=== PATIENT | female | born 1985 | race American Indian/Alaskan Native ===

== ENCOUNTER 2016-04-19 00:17 | Emergency (ER) | payer MEDICAID ==
[2016-04-19 01:38] LABS: Basophils % (Auto) 0.5 % (0.0-1.8); Eosinophils % (Auto) 4.1 % (0.0-4.3); Hematocrit 38.6 % (30.3-42.9); Hemoglobin 12.6 gm/dl (10.1-14.3); Mean Corpuscular HGB Conc 33 % (30-34); Mean Corpuscular Hemoglobin 27 pg (28-32); Mean Corpuscular Volume 81 fl (79-97); Platelet Count 284 K/mm3 (140-440); Red Blood Count 4.77 M/mm3 (3.65-5.03); White Blood Count 7.9 K/mm3 (4.5-11.0)
[2016-04-19 02:15] LABS: Anion Gap 17 mmol/L; Blood Urea Nitrogen 12 mg/dL (7-17); Calcium 9.5 mg/dL (8.4-10.2); Carbon Dioxide 26 mmol/L (22-30); Chloride 93.9 mmol/L (98-107); Glucose 391 mg/dL (65-100); Potassium 3.9 mmol/L (3.6-5.0); Sodium 133 mmol/L (137-145)
[2016-04-19 03:04] LABS: Bilirubin,Urine NEG (Negative); Blood,Urine LG (Negative); Ketones,Urine NEG (Negative); Leukocyte Esterase,Urine NEG (Negative); Nitrite,Urine NEG (Negative); Protein,Urine <15 mg/dL mg/dL (Negative); Urobilinogen,Urine < 2.0 mg/dL (<2.0)
[2016-04-19] MEDS: NACL 0.9% 1000 ML 1,000 ML IV ONE (03:45)
[2016-04-19 04:08] VITALS: BP 111/67
--- NOTE | 2016-04-19 05:36 | Emergency Department Report ---
HPI - General Chief Complaint: Hyperglycemia Time Seen by Provider: 04/19/16 04:33 - HPI HPI: The patient is a 30-year-old female with a history of diabetes, presents for evaluation of elevated blood sugar and bilateral lower leg pain. The patient reports 1 day of bilateral lower leg pain, tingling and sharp in quality, mild to moderate in severity, exacerbated with movement of the leg, radiating proximally. She shares that she found her blood sugar to be elevated as high as 600 earlier this evening at 9 PM. The patient denies fever, cough, dyspnea, chest pain, vomiting, diarrhea, blood in the stool, dark tarry stool, dysuria, hematuria, flank pain, genital discharge, inability to pass flatus. ED Past Medical Hx - Past Medical History Previous Medical History?: Yes Hx Hypertension: No Hx Congestive Heart Failure: No Hx Diabetes: Yes Hx Deep Vein Thrombosis: No Hx Renal Disease: No Hx Sickle Cell Disease: No Hx Seizures: No Hx Psychiatric Treatment: Yes (four times in [place], [place].) Hx Asthma: No Hx COPD: No Hx HIV: No Additional medical history: bipolar - Surgical History Past Surgical History?: Yes Additional Surgical History: tubal ligation - Social History Smoking Status: Never Smoker Substance Use Type: None - Medications Home Medications: Home Medications Medication Instructions Recorded Confirmed Last Taken Type Insulin Glargine [Lantus VIAL] 30 units SUB-Q QHS 11/26/14 11/26/14 11/26/14 History Insulin Lispro [HumaLOG VIAL] 0 units SQ AC 11/26/14 11/26/14 11/26/14 History metFORMIN [Glucophage] 500 mg PO BID 11/26/14 11/26/14 11/26/14 History Sulfamethoxazole/Trimethoprim 1 each PO BID #20 tablet 06/24/15 Unknown Rx [Bactrim DS TAB] Gabapentin [Neurontin] 300 mg PO BID #20 cap 04/19/16 Unknown Rx ED Review of Systems ROS: Stated complaint: HIGH BLOOD SUGAR Other details as noted in HPI Constitutional: denies: fever ENT: denies: throat or neck pain Respiratory: denies: cough, shortness of breath Cardiovascular: denies: chest pain Endocrine: denies unexplained weight loss or gain Gastrointestinal: denies: abdominal pain, nausea Genitourinary: denies: dysuria Musculoskeletal: reports leg pain denies: leg swelling Skin: denies: rash Neurological: denies: headache Hematological/Lymphatic: denies: easy bleeding or easy bruising Psych: denies sadness or hopelessness Physical Exam - Physical Exam Vital Signs: Vital Signs 04/19/16 04/19/16 04/19/16 00:20 02:07 03:45 Temperature 98.3 F 98.2 F Pulse Rate 84 77 78 Respiratory 20 18 18 Rate Blood Pressure 111/67 [Left] Blood Pressure 133/94 119/68 [Right] O2 Sat by Pulse 100 99 Oximetry Physical Exam: General: well-nourished, well-developed, no acute distress Head: Normocephalic, atraumatic Eyes: normal sclera ENT: Mucous membranes are pale and dry Neck: No neck stiffness, no cervical adenopathy Respiratory: Breath sounds equal bilaterally, no wheezing, rales, or rhonchi Cardio: S1 and S2 present, no murmurs, rubs, gallops, capillary refill is delayed Abdomen: Normoactive bowel sounds, soft abdomen, no rigidity, no guarding or rebound tenderness Musc: No tenderness to the lower legs bilaterally, no redness, warmth, ecchymosis or swelling, no signs of DVT or compartment syndrome, No pitting edema Skin: No rash Neuro: no facial drooping, normal speech Psych: Normal affect ED Course Vital Signs 04/19/16 04/19/16 04/19/16 00:20 02:07 03:45 Temperature 98.3 F 98.2 F Pulse Rate 84 77 78 Respiratory 20 18 18 Rate Blood Pressure 111/67 [Left] Blood Pressure 133/94 119/68 [Right] O2 Sat by Pulse 100 99 Oximetry ED Medical Decision Making - Lab Data Result diagrams: 04/19/16 00:51 04/19/16 00:51 - Medical Decision Making The patient was seen and examined by myself. The patient is placed on a hospital monitor and continuous pulse ox. On initial evaluation, the patient was found to be in no distress. Evaluation orders were placed. The patient given a tablet of Neurontin for her pain. Lab results revealed elevated glucose of 390 , and otherwise labs are unrevealing. The patient is given 1 L normal saline fluid bolus for treatment of dehydration and hyperglycemia.The patient was reevaluated and reported that their symptoms were markedly improved. The patient's glucose is now in the 220. The patient is stable for discharge with outpatient follow-up. The patient is given follow-up and return instructions. The patient expressed understanding and agreed with the plan. The patient is discharged in stable condition. Critical care attestation.: If time is entered above; I have spent that time in minutes in the direct care of this critically ill patient, excluding procedure time. ED Disposition Clinical Impression: Acute hyperglycemia, Dehydration, Bilateral leg pain Disposition: DISCHARGED TO HOME OR SELFCARE Is pt being admited?: No Does the pt Need Aspirin: No Condition: Stable Instructions: Diabetic Hyperglycemia (ED), Diabetic Neuropathy (ED) Prescriptions: Gabapentin [Neurontin] 300 mg PO BID #20 cap Referrals: PRIMARY CARE, [Primary Care Provider] - 3-5 Days Time of Disposition: 05:02
[2016-04-19] MEDS: NEURONTIN PO ONE (05:43)
[2016-04-19] MEDS: TYLENOL PO ONE (05:43)
[2016-04-22 03:02] LABS: B-Hydroxybutyrate 0.1 mmol/L (-0.28)
== END 2016-04-19 06:04 | disposition home or self-care (01) ==
LOC: ED 00:17
DX: E11.65 Type 2 diabetes mellitus with hyperglycemia (principal); E86.0 Dehydration; M79.605 Pain in left leg; M79.604 Pain in right leg; F31.9 Bipolar disorder, unspecified
CPT/HCPCS: 36415; 80048; 81001; 82010; 82805; 82962; 84703; 85025; 96361; 96374; 99284; J7030; J1815

== ENCOUNTER 2016-05-30 08:49 | Emergency (ER) | payer MEDICAID ==
[2016-05-30 09:08] VITALS: BP 119/82
[2016-05-30 09:22] LABS: Basophils % (Auto) 0.6 % (0.0-1.8); Eosinophils % (Auto) 4.2 % (0.0-4.3); Hematocrit 38.4 % (30.3-42.9); Hemoglobin 12.7 gm/dl (10.1-14.3); Mean Corpuscular HGB Conc 33 % (30-34); Mean Corpuscular Hemoglobin 27 pg (28-32); Mean Corpuscular Volume 81 fl (79-97); Platelet Count 329 K/mm3 (140-440); Red Blood Count 4.75 M/mm3 (3.65-5.03); Red Cell Distribution Width 15.6 % (13.2-15.2); White Blood Count 6.5 K/mm3 (4.5-11.0)
[2016-05-30 09:36] LABS: Anion Gap 26 mmol/L; BUN/Creatinine Ratio 23.33; Blood Urea Nitrogen 14 mg/dL (7-17); Calcium 9.2 mg/dL (8.4-10.2); Carbon Dioxide 18 mmol/L (22-30); Chloride 88.9 mmol/L (98-107); Potassium 4.2 mmol/L (3.6-5.0); Sodium 129 mmol/L (137-145)
[2016-05-30 09:38] LABS: Glucose 515 mg/dL (65-100)
--- NOTE | 2016-05-30 10:26 | Emergency Department Report ---
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 - ROS Review of Systems: see above - Exam Vital Signs: Vital Signs 05/30/16 09:04 Temperature 98.2 F Pulse Rate 83 Respiratory 16 Rate Blood Pressure 119/82 O2 Sat by Pulse 98 Oximetry MSE screening note: Focused history and physical exam performed. Due to findings the following was ordered: ED Medical Decision Making - Lab Data Result diagrams: 05/30/16 09:11 05/30/16 09:15 ED Disposition for MSE Condition: Stable Referrals: PRIMARY CARE, [Primary Care Provider] - 3-5 Days
[2016-06-03 12:40] LABS: B-Hydroxybutyrate 3.7 mmol/L (0.2 - 0.28)
== END 2016-05-30 10:18 | disposition left against medical advice (07) ==
LOC: ED 08:49
DX: E11.65 Type 2 diabetes mellitus with hyperglycemia (principal); Z53.21 Procedure and treatment not carried out due to patient leaving prior to being seen by health care provider
CPT/HCPCS: 36415; 80048; 82010; 82805; 82962; 85025

== ENCOUNTER 2016-08-10 22:26 | Emergency (ER) | payer MEDICAID ==
[2016-08-10 22:49] VITALS: BP 135/84
[2016-08-10 23:16] LABS: Basophils % (Auto) 0.4 % (0.0-1.8); Eosinophils % (Auto) 2.9 % (0.0-4.3); Hemoglobin 12.8 gm/dl (10.1-14.3); Mean Corpuscular HGB Conc 33 % (30-34); Mean Corpuscular Hemoglobin 27 pg (28-32); Mean Corpuscular Volume 81 fl (79-97); Platelet Count 326 K/mm3 (140-440); Red Blood Count 4.82 M/mm3 (3.65-5.03); Red Cell Distribution Width 15.4 % (13.2-15.2); White Blood Count 8.9 K/mm3 (4.5-11.0)
[2016-08-10 23:29] LABS: Anion Gap 22 mmol/L; BUN/Creatinine Ratio 18.33; Blood Urea Nitrogen 11 mg/dL (7-17); Calcium 9.2 mg/dL (8.4-10.2); Carbon Dioxide 23 mmol/L (22-30); Chloride 89.6 mmol/L (98-107); Glucose 420 mg/dL (65-100); Potassium 3.6 mmol/L (3.6-5.0); Sodium 131 mmol/L (137-145)
[2016-08-10 23:49] LABS: Bilirubin,Urine NEG (Negative); Blood,Urine LG (Negative); Ketones,Urine 20 mg/dL (Negative); Leukocyte Esterase,Urine NEG (Negative); Mucus,Urine FEW /HPF; Nitrite,Urine NEG (Negative); Protein,Urine <15 mg/dL mg/dL (Negative); Urobilinogen,Urine < 2.0 mg/dL (<2.0)
[2016-08-11] MEDS ORDERED: NACL 0.9% 1000 ML 1,000 ML IV ONE (00:23)
--- NOTE | 2016-08-11 01:01 | ED Elopement Review ---
ED Pt Elopement review - Results review Lab results: Laboratory Tests 08/10/16 08/10/16 08/10/16 22:52 22:52 22:52 WBC 8.9 RBC 4.82 Hgb 12.8 Hct 39.0 MCV 81 MCH 27 L MCHC 33 RDW 15.4 H Plt Count 326 Lymph % (Auto) 42.3 H [place] % (Auto) 8.2 H Eos % (Auto) 2.9 Baso % (Auto) 0.4 Lymph # 3.8 [place] # 0.7 Eos # 0.3 Baso # 0.0 Seg Neutrophils % 46.2 Seg Neutrophils # 4.1 VBG pH Sodium 131 L Potassium 3.6 Chloride 89.6 L Carbon Dioxide 23 Anion Gap 22 BUN 11 Creatinine 0.6 L Estimated GFR > 60 BUN/Creatinine Ratio 18.33 Glucose 420 H Calcium 9.2 HCG, Qual Negative Urine Color Urine Turbidity Urine pH Ur Specific [place] Urine Protein Urine Glucose (UA) Urine Ketones Urine Blood Urine Nitrite Urine Bilirubin Urine Urobilinogen Ur Leukocyte Esterase Urine WBC (Auto) Urine RBC (Auto) U Epithel Cells (Auto) Urine Mucus 08/10/16 08/10/16 22:54 23:21 WBC RBC Hgb Hct MCV MCH MCHC RDW Plt Count Lymph % (Auto) [place] % (Auto) Eos % (Auto) Baso % (Auto) Lymph # [place] # Eos # Baso # Seg Neutrophils % Seg Neutrophils # VBG pH 7.398 Sodium Potassium Chloride Carbon Dioxide Anion Gap BUN Creatinine Estimated GFR BUN/Creatinine Ratio Glucose Calcium HCG, Qual Urine Color Straw Urine Turbidity Clear Urine pH 6.0 Ur Specific [place] 1.027 Urine Protein <15 mg/dl Urine Glucose (UA) >=500 Urine Ketones 20 Urine Blood Lg Urine Nitrite Neg Urine Bilirubin Neg Urine Urobilinogen < 2.0 Ur Leukocyte Esterase Neg Urine WBC (Auto) 39.0 H Urine RBC (Auto) 19.0 U Epithel Cells (Auto) < 1.0 Urine Mucus Few - Call Back decision Pt Call Back Decision: Call pt to return to ED BERNARDA (when I went to examine the patient in the examination room the patient had left. This was confirmed by the other patient in exam room #[id number] as well as issuer Robert. I called the patient back at the number listed on demographics and spoke to her on the phone. I advised the patient to return to the emergency room immediately because her sugar level is very high and her diabetes is not well-controlled. Patient stated that she left because she could not find anyone to take care of her children. Patient stated that she would seek medical attention as soon as possible. I advised the patient to return to the emergency room immediately patient stated that she would do so at her earliest convenience.)
== END 2016-08-11 01:47 | disposition left against medical advice (07) ==
LOC: ED 22:26
DX: E11.65 Type 2 diabetes mellitus with hyperglycemia (principal); Z76.0 Encounter for issue of repeat prescription; F31.9 Bipolar disorder, unspecified; F17.200 Nicotine dependence, unspecified, uncomplicated; Z53.21 Procedure and treatment not carried out due to patient leaving prior to being seen by health care provider
CPT/HCPCS: 36415; 80048; 81001; 82805; 84703; 85025

== ENCOUNTER 2016-11-02 07:26 | Emergency (ER) | payer SELFPAY ==
[2016-11-02 07:49] VITALS: BP 121/69
== END 2016-11-02 08:23 ==
LOC: ED 07:26
DX: R73.9 Hyperglycemia, unspecified (principal); Z53.21 Procedure and treatment not carried out due to patient leaving prior to being seen by health care provider

== ENCOUNTER 2017-04-12 19:29 | Emergency (ER) | payer MEDICAID ==
[2017-04-12 20:38] LABS: Basophils # (Auto) 0.1 K/mm3 (0.0-0.1); Basophils % (Auto) 0.8 % (0.0-1.8); Eosinophils # (Auto) 0.2 K/mm3 (0.0-0.4); Eosinophils % (Auto) 3.3 % (0.0-4.3); Hematocrit 35.2 % (30.3-42.9); Hemoglobin 11.5 gm/dl (10.1-14.3); Lymphocytes # (Auto) 3.4 K/mm3 (1.2-5.4); Lymphocytes % (Auto) 50.6 % (13.4-35.0); Mean Corpuscular HGB Conc 33 % (30-34); Mean Corpuscular Volume 78 fl (79-97); Monocytes # (Auto) 0.5 K/mm3 (0.0-0.8); Monocytes % (Auto) 7.6 % (0.0-7.3); Platelet Count 323 K/mm3 (140-440); Red Blood Count 4.49 M/mm3 (3.65-5.03); Red Cell Distribution Width 15.4 % (13.2-15.2)
[2017-04-12 20:42] LABS: Mean Corpuscular Hemoglobin 26 pg (28-32)
[2017-04-12 20:54] LABS: BUN/Creatinine Ratio 22; Blood Urea Nitrogen 13 mg/dL (7-17); Calcium 9.1 mg/dL (8.4-10.2); Hemolysis Index 14
[2017-04-12] MEDS ORDERED: NACL 0.9% 1000 ML 1,000 ML IV ONE (22:07)
[2017-04-12] MEDS ORDERED: HumuLIN R IV ONE (22:07)
--- NOTE | 2017-04-12 22:11 | Emergency Department Report ---
HPI - General Chief Complaint: Hyperglycemia Time Seen by Provider: 04/12/17 22:01 - HPI HPI: 31-year-old female presents to the emergency department, dropped off by her mother to be seen, with complaint of low back pain when urinating. She denies any actual dysuria and she does not have any back pain when she is not urinating, is resting, or with any other type of movement. She denies any numbness or paresthesias or any neurological deficits. The patient presents with elevated blood sugar. She has a insulin-dependent diabetic and says she is compliant with her medications. She admits to some increased urination, increased thirst, but denies any fever, shortness of breath, abdominal pain, vaginal discharge or bleeding. She has not taken anything for her symptoms prior to Presentation. No recent travel or sick contacts at home. She goes to [facility] for her primary care needs. ED Past Medical Hx - Past Medical History Previous Medical History?: Yes Hx Hypertension: No Hx Congestive Heart Failure: No Hx Diabetes: Yes (Type 1) Hx Deep Vein Thrombosis: No Hx Renal Disease: No Hx Sickle Cell Disease: No Hx Seizures: No Hx Psychiatric Treatment: Yes (four times in [place], [place].BI Polar disorder) Hx Asthma: No Hx COPD: No Hx HIV: No Additional medical history: bipolar Disorder - Surgical History Past Surgical History?: Yes Additional Surgical History: tubal ligation - Social History Smoking Status: Former Smoker Substance Use Type: None - Medications Home Medications: Home Medications Medication Instructions Recorded Confirmed Last Taken Type Insulin Glargine [Lantus VIAL] 30 units SUB-Q QHS 11/26/14 11/26/14 11/26/14 History Insulin Lispro [HumaLOG VIAL] 0 units SQ AC 11/26/14 11/26/14 11/26/14 History metFORMIN [Glucophage] 500 mg PO BID 11/26/14 11/26/14 11/26/14 History Sulfamethoxazole/Trimethoprim 1 each PO BID #20 tablet 06/24/15 Unknown Rx [Bactrim DS TAB] Gabapentin [Neurontin] 300 mg PO BID #20 cap 04/19/16 Unknown Rx Nitrofurantoin [place]/M-Cryst 100 mg PO BID #14 capsule 04/12/17 Unknown Rx [Macrobid CAP] ED Review of Systems ROS: Stated complaint: PAINFUL URINATION; BACK PAIN Other details as noted in HPI Comment: All other systems reviewed and negative Constitutional: denies: chills, fever Eyes: denies: eye pain, eye discharge, vision change ENT: denies: ear pain, throat pain Respiratory: denies: cough, shortness of breath, wheezing Cardiovascular: denies: chest pain, palpitations Endocrine: increased thirst, increased urine Gastrointestinal: denies: vomiting, diarrhea Genitourinary: frequency. denies: discharge Musculoskeletal: back pain (when urinating). denies: arthralgia Skin: denies: rash, lesions Neurological: denies: headache, weakness, paresthesias Physical Exam - Physical Exam Vital Signs: Vital Signs 04/12/17 20:07 Temperature 99.2 F Pulse Rate 87 Respiratory 18 Rate Blood Pressure 124/84 O2 Sat by Pulse 99 Oximetry Physical Exam: GENERAL: The patient is well-developed well-nourished. HENT: Normocephalic. Atraumatic. Patient has moist mucous membranes. EYES: Extraocular motions are intact. Pupils equal reactive to light bilaterally. NECK: Supple. Trachea is midline. CHEST/LUNGS: Clear to auscultation. There is no respiratory distress noted. HEART/CARDIOVASCULAR: Regular. There is no tachycardia. There is no murmur. ABDOMEN: Abdomen is soft, nontender. Patient has normal bowel sounds. There is no abdominal distention. SKIN: Skin is warm and dry. NEURO: The patient is awake, alert, and oriented. The patient is cooperative. The patient has no focal neurologic deficits. The patient has normal speech. MUSCULOSKELETAL: There is no tenderness or deformity. There is no limitation range of motion. There is no evidence of acute injury. Muscle strength 5 out of 5 upper and lower extremities bilaterally including EHL. BACK: No midline thoracic or lumbar tenderness to palpation, step-off or deformity. ED Course Vital Signs 04/12/17 20:07 Temperature 99.2 F Pulse Rate 87 Respiratory 18 Rate Blood Pressure 124/84 O2 Sat by Pulse 99 Oximetry ED Medical Decision Making - Lab Data Result diagrams: 04/12/17 20:26 04/12/17 20:26 - Medical Decision Making Patient presents with complaint of some back pain with urination. Urinalysis does show a urinary tract infection that may be the etiology of the symptoms. She has no back pain otherwise and therefore is low suspicion for any emergent back condition such as cauda equina, epidural abscess or cord compression syndrome. She is moving all extremities, no numbness or paresthesias and no back pain to palpation. The patient does have some signs/symptoms of hyperglycemia including increased thirst and increased urination and was found to have elevated blood sugar of about 420. She does not have a significantly elevated anion gap and there is no venous acidosis and therefore the patient is lower suspicion for diabetic ketoacidosis. She was given a dose of IV insulin and a liter of IV fluid and her blood sugar came down from 420 - 280. She was given a dose of her Macrobid here prior to discharge and will go home with a prescription for. She already has an appointment with her PCP at [facility] this coming Sunday and will keep that appointment. She will try stay with foods that are high in sugar, carbohydrates and starches, continue with her insulin regimen, and will return to the ER with any worsening of her symptoms or any acute distress. - Differential Diagnosis DKA, HHNK, UTI, Critical Care Time: No Critical care attestation.: If time is entered above; I have spent that time in minutes in the direct care of this critically ill patient, excluding procedure time. ED Disposition Clinical Impression: Hyperglycemia UTI (urinary tract infection) Qualifiers: Urinary tract infection type: acute cystitis Hematuria presence: without hematuria Qualified Code(s): N30.00 - Acute cystitis without hematuria Disposition: TO HOME OR SELFCARE Is pt being admited?: No Condition: Stable Instructions: Urinary Tract Infection in Women (ED), Diabetic Hyperglycemia (ED ) Additional Instructions: Please follow-up with your primary care physician at [facility] on Sunday as previously scheduled. Return to the emergency Department with any worsening of your symptoms or any acute distress. Take the antibiotics as prescribed. Try and stay away from foods that are high in sugar, carbohydrates and starches to help with your blood sugar. Take your insulin as previously prescribed. Keep a blood sugar log. Prescriptions: Nitrofurantoin [place]/M-Cryst [Macrobid CAP] 100 mg PO BID #14 capsule Referrals: [facility] [Outside] - 3-5 Days Time of Disposition: 23:46
[2017-04-12 23:29] VITALS: BP 107/66
[2017-04-12 23:30] LABS: Bacteria,Urine 1+ /HPF (Negative); Bilirubin,Urine NEG (Negative); Blood,Urine NEG (Negative); Color,Urine Yellow (Yellow); Mucus,Urine FEW /HPF; Protein,Urine <15 mg/dL mg/dL (Negative); Urobilinogen,Urine < 2.0 mg/dL (<2.0)
[2017-04-12] MEDS ORDERED: ROCEPHIN/NS 1 GM/50 ML 1 GM/50 ML BAG IV ONE (23:41)
[2017-04-12] MEDS ORDERED: MACROBID PO ONE (23:44)
== END 2017-04-13 00:11 | disposition home or self-care (01) ==
LOC: ED 19:29
DX: N39.0 Urinary tract infection, site not specified (principal); E10.65 Type 1 diabetes mellitus with hyperglycemia; Z79.4 Long term (current) use of insulin; Z87.891 Personal history of nicotine dependence
CPT/HCPCS: 36415; 80048; 81001; 82805; 82962; 84703; 85025; 93005; 93010; 96361; 96374; 99284; J7030; J1815

== ENCOUNTER 2017-08-14 12:02 | Emergency (ER) | payer MEDICAID ==
[2017-08-14 13:07] LABS: Basophils % (Auto) 0.6 % (0.0-1.8); Eosinophils # (Auto) 0.3 K/mm3 (0.0-0.4); Eosinophils % (Auto) 6.2 % (0.0-4.3); Hematocrit 35.8 % (30.3-42.9); Hemoglobin 11.9 gm/dl (10.1-14.3); Lymphocytes # (Auto) 2.2 K/mm3 (1.2-5.4); Lymphocytes % (Auto) 46.2 % (13.4-35.0); Mean Corpuscular HGB Conc 33 % (30-34); Mean Corpuscular Hemoglobin 28 pg (28-32); Mean Corpuscular Volume 83 fl (79-97); Monocytes # (Auto) 0.4 K/mm3 (0.0-0.8); Monocytes % (Auto) 9.4 % (0.0-7.3); Platelet Count 282 K/mm3 (140-440); Red Cell Distribution Width 16.4 % (13.2-15.2)
[2017-08-14 13:18] LABS: BUN/Creatinine Ratio 14; Blood Urea Nitrogen 7 mg/dL (7-17); Calcium 9.2 mg/dL (8.4-10.2); Hemolysis Index 10
[2017-08-14] MEDS ORDERED: HumuLIN R IV ONE (14:09)
[2017-08-14] MEDS ORDERED: NACL 0.9% 1000 ML 1,000 ML IV ONE (14:17)
[2017-08-14 14:28] LABS: Bacteria,Urine 1+ /HPF (Negative); Bilirubin,Urine NEG (Negative); Blood,Urine MOD (Negative); Color,Urine Yellow (Yellow); Mucus,Urine FEW /HPF; Protein,Urine <15 mg/dL mg/dL (Negative); Urobilinogen,Urine < 2.0 mg/dL (<2.0)
--- NOTE | 2017-08-14 17:43 | Emergency Department Report ---
ED General Adult HPI - General Chief complaint: Hyperglycemia Stated complaint: HIGH BLOOD SUGAR Time Seen by Provider: 08/14/17 13:52 Source: EMS Mode of arrival: Ambulatory Limitations: No Limitations - History of Present Illness Initial comments: Patient reports non-compliant with insulin use. Reports that approximately 2 months ago she stopped taking her meds and sought counseling for depression after her young son of cancer. Denies symptoms. Reports that she took 30 units of lantus prior to going to the clinic for her scheduled appointment. Was told at the clinic that her accucheck was high and to go to the ER. -: hour(s) Severity scale (0 -10): 0 Consistency: constant Improves with: medication Worsens with: other (medication non-compliance) Associated Symptoms: denies other symptoms. denies: confusion, chest pain, cough, diaphoresis, headaches, loss of appetite, malaise, nausea/vomiting, rash , shortness of breath, syncope, weakness - Related Data Home Medications Medication Instructions Recorded Confirmed Last Taken Insulin Glargine [Lantus VIAL] 30 units SUB-Q QHS 11/26/14 08/14/17 11/26/14 Insulin Lispro [HumaLOG VIAL] 0 units SQ AC 11/26/14 08/14/17 08/14/17 buPROPion XL [Wellbutrin Xl] 150 mg PO QAM 08/14/17 08/14/17 08/14/17 Allergies Allergy/AdvReac Type Severity Reaction Status Date / Time No Known Allergies Allergy Verified 02/17/13 23:39 ED Review of Systems ROS: Stated complaint: HIGH BLOOD SUGAR Other details as noted in HPI Hematological/Lymphatic: swollen glands Other: GENERAL: No weight change, fatigue, weakness, fever, chills, or night sweats SKIN: No changes in skin or hair, no itching, no rashes, no jaundice HEAD: No trauma, headache, or visual changes EYES: No blurriness, tearing, itching, acute visual loss, conjunctival discoloration, or scleral icterus EARS: No hearing loss, tinnitus, vertigo, or earache NOSE: No rhinorrhea, stuffiness, sneezing, itching, or epistaxis MOUTH: No bleeding gums, hoarseness, sore throat, or swelling CARDIAC: No new murmur, chest pain, palpitations, dyspnea on exertion, orthopnea , PND, or edema RESPIRATORY: No shortness of breath, wheeze, cough, sputum production, hemoptysis, pneumonia, asthma, bronchitis, or emphysema GI: No change in appetite, nausea, vomiting, dysphagia, change in bowel frequency, diarrhea, constipation, bleeding, hematemesis, melena, hematochezia, or abdominal pain URINARY: No frequency, urgency, polyuria, dysuria, hematuria, or incontinence MUSCULOSKELETAL: No muscle weakness, joint stiffness, decrease in range of motion, redness, swelling NEUROLOGIC: No loss of sensation, numbness, tingling, tremors, weakness, paralysis, seizures HEMATOLOGIC: No anemia, easy bruising, bleeding, petechiae, or purpura ENDOCRINE: No hot or cold intolerance, sweating, polyuria, polydipsia or, polyphagia no thyroid problems PSYCHIATRIC: Depression. Denies SI/HI. Reports that she is followed by a therapist and refuses evaluation by the counselor in the ER. ED Past Medical Hx - Past Medical History Previous Medical History?: Yes Hx Hypertension: No Hx CVA: No Hx Heart Attack/AMI: No Hx Congestive Heart Failure: No Hx Diabetes: Yes (Type 1) Hx Deep Vein Thrombosis: No Hx Pulmonary Embolism: No Hx GERD: No Hx Liver Disease: No Hx Renal Disease: No Hx of Cancer: No Hx Sickle Cell Disease: No Hx Arthritis: No Hx Headaches / Migraines: No Hx Seizures: No Hx Kidney Stones: No Hx Psychiatric Treatment: Yes (four times in [place], [place].BI Polar disorder) Hx Asthma: No Hx COPD: No Hx Dementia: No Hx HIV: No Additional medical history: bipolar Disorder - Surgical History Past Surgical History?: Yes Hx Coronary Stent: No Hx Open Heart Surgery: No Hx Pacemaker: No Hx Internal Defibrillator: No Hx Cholecystectomy: No Hx Appendectomy: No Hx Breast Surgery: No Additional Surgical History: tubal ligation - Social History Smoking Status: Former Smoker Substance Use Type: None - Medications Home Medications: Home Medications Medication Instructions Recorded Confirmed Last Taken Type Insulin Glargine [Lantus VIAL] 30 units SUB-Q QHS 11/26/14 08/14/17 11/26/14 History Insulin Lispro [HumaLOG VIAL] 0 units SQ AC 11/26/14 08/14/17 08/14/17 History buPROPion XL [Wellbutrin Xl] 150 mg PO QAM 08/14/17 08/14/17 08/14/17 History ED Physical Exam - General Limitations: No Limitations - Other Other exam information: GENERAL: Patient in no acute distress HEAD: Normocephalic, atraumatic EYES: PERRLA, EOM intact, no scleral icterus, visual bonds and acuity wnl NOSE: No tenderness, discharge, sinus tenderness MOUTH: No erythema, bleeding, exudate HEART: Regular rate and rhythm, no murmur, S1-S2 are auscultated, pulses are symmetric LUNGS: bilateral breath sounds. No wheezing, rales, rhonchi ABDOMEN: Normal bowel sounds, no tenderness, no rebound, no guarding, no masses , no CVA tenderness MUSCULOSKELETAL: Normal joint range of motion, no redness, no swelling, no tenderness NEUROLOGIC: GCS 15, Alert and Oriented x3, Cranial nerves intact, normal sensation, normal strength, normal gait, no cerebellar deficit PSYCHIATRIC: Depression. No homicidal or suicidal ideation, no hallucinations SKIN: Skin is warm and dry, no wounds, no rashes ED Course Vital Signs 08/14/17 08/14/17 08/14/17 12:00 12:15 12:16 Temperature 98.1 F Pulse Rate 68 Respiratory 17 16 Rate Blood Pressure 116/87 116/87 Blood Pressure 116/87 [Right] O2 Sat by Pulse 100 100 100 Oximetry 08/14/17 08/14/17 08/14/17 12:25 12:31 12:45 Temperature Pulse Rate Respiratory 16 21 15 Rate Blood Pressure 116/87 116/87 Blood Pressure [Right] O2 Sat by Pulse 100 100 100 Oximetry 08/14/17 08/14/17 08/14/17 13:00 13:15 13:31 Temperature Pulse Rate 86 Respiratory 20 17 21 Rate Blood Pressure 125/85 125/85 125/85 Blood Pressure [Right] O2 Sat by Pulse 100 99 99 Oximetry 08/14/17 08/14/17 08/14/17 13:57 14:00 14:31 Temperature Pulse Rate Respiratory Rate Blood Pressure 125/85 118/83 118/83 Blood Pressure [Right] O2 Sat by Pulse 100 100 Oximetry 08/14/17 08/14/17 08/14/17 15:00 15:31 16:00 Temperature Pulse Rate Respiratory 12 13 19 Rate Blood Pressure 121/79 121/79 111/73 Blood Pressure [Right] O2 Sat by Pulse 100 100 100 Oximetry 08/14/17 08/14/17 16:31 17:00 Temperature Pulse Rate Respiratory 12 13 Rate Blood Pressure 111/73 119/80 Blood Pressure [Right] O2 Sat by Pulse 100 100 Oximetry ED Medical Decision Making - Lab Data Result diagrams: 08/14/17 12:46 08/14/17 12:50 Laboratory Results - last 24 hr 08/14/17 08/14/17 08/14/17 12:50 14:08 14:59 POC Glucose 325 H Troponin T < 0.010 Urine Color Yellow Urine Turbidity Cloudy Urine pH 6.0 Ur Specific [place] 1.033 H Urine Protein <15 mg/dl Urine Glucose (UA) >=500 Urine Ketones Tr Urine Blood Mod Urine Nitrite Neg Urine Bilirubin Neg Urine Urobilinogen < 2.0 Ur Leukocyte Esterase Sm Urine WBC (Auto) 28.0 H Urine RBC (Auto) 6.0 U Epithel Cells (Auto) 19.0 H Urine Bacteria (Auto) 1+ Urine Mucus Few 08/14/17 08/14/17 16:03 17:20 POC Glucose 219 H 244 H Troponin T Urine Color Urine Turbidity Urine pH Ur Specific [place] Urine Protein Urine Glucose (UA) Urine Ketones Urine Blood Urine Nitrite Urine Bilirubin Urine Urobilinogen Ur Leukocyte Esterase Urine WBC (Auto) Urine RBC (Auto) U Epithel Cells (Auto) Urine Bacteria (Auto) Urine Mucus - Medical Decision Making Dr. Springer hospitalists updated with results. Recommends discharge patient. If patient can afford OTC insulin for $25 ok to buy that and follow up at his office to be restarted on insulin. Agrees to see the patient for free. Patient comfortable. Updated with results. Patient reports that she has a rx for her insulin at the pharmacy ordered by the clinic. Reports that she will pick it up. Agrees to take her medication and check her sugar. Agrees to outpatient follow up. Plan discharge with outpatient follow up. Patient agrees with plan and will return if symptoms worsen. Critical care attestation.: If time is entered above; I have spent that time in minutes in the direct care of this critically ill patient, excluding procedure time. ED Disposition Clinical Impression: Hyperglycemia, Nonadherence to medication Uncontrolled diabetes mellitus with hyperglycemia, without long-term current use of insulin Qualifiers: Diabetes mellitus type: other specified (including MALGORZATA) Qualified Code(s): E13.65 - Other specified diabetes mellitus with hyperglycemia Disposition: DC-01 TO HOME OR SELFCARE Is pt being admited?: No Condition: Stable Instructions: Diabetic Hyperglycemia (ED) Referrals: PRIMARY CARE, [Primary Care Provider] - 2-3 Days [facility] [Outside] - 2-3 Days RADHA SPRINGER MD [Staff Physician] - 2-3 Days Time of Disposition: 17:39
[2017-08-14 17:51] VITALS: BP 119/80
== END 2017-08-14 17:52 | disposition home or self-care (01) ==
LOC: ED 12:02
DX: E11.65 Type 2 diabetes mellitus with hyperglycemia (principal); F31.9 Bipolar disorder, unspecified; Z79.4 Long term (current) use of insulin; Z98.51 Tubal ligation status; Z87.891 Personal history of nicotine dependence
CPT/HCPCS: 36415; 80048; 81001; 82805; 82962; 84484; 85025; 96361; 96374; 99284; J7030; J1815

== ENCOUNTER 2017-09-03 14:21 | Emergency (ER) | payer MEDICAID ==
[2017-09-03 14:46] VITALS: BP 124/82
[2017-09-03] MEDS ORDERED: NACL 0.9% 1000 ML 1,000 ML IV ONE (14:46)
[2017-09-03 15:07] LABS: Basophils % (Auto) 0.2 % (0.0-1.8); Eosinophils # (Auto) 0.2 K/mm3 (0.0-0.4); Eosinophils % (Auto) 3.9 % (0.0-4.3); Hematocrit 37.7 % (30.3-42.9); Lymphocytes # (Auto) 2.2 K/mm3 (1.2-5.4); Lymphocytes % (Auto) 43.6 % (13.4-35.0); Mean Corpuscular HGB Conc 34 % (30-34); Mean Corpuscular Hemoglobin 29 pg (28-32); Mean Corpuscular Volume 83 fl (79-97); Monocytes # (Auto) 0.3 K/mm3 (0.0-0.8); Monocytes % (Auto) 6.6 % (0.0-7.3); Platelet Count 275 K/mm3 (140-440); Red Blood Count 4.54 M/mm3 (3.65-5.03)
[2017-09-03 15:21] LABS: Alanine Aminotransferase 7 units/L (7-56); Albumin 4.2 g/dL (3.9-5); BUN/Creatinine Ratio 15; Blood Urea Nitrogen 9 mg/dL (7-17); Calcium 9.6 mg/dL (8.4-10.2); Hemolysis Index 0; Lipase 16 units/L (13-60)
[2017-09-03 15:34] LABS: Bacteria,Urine 1+ /HPF (Negative); Bilirubin,Urine NEG (Negative); Blood,Urine MOD (Negative); Color,Urine Yellow (Yellow); Protein,Urine <15 mg/dL mg/dL (Negative)
== END 2017-09-03 18:35 | disposition left against medical advice (07) ==
LOC: ED 14:21
DX: E10.65 Type 1 diabetes mellitus with hyperglycemia (principal); R11.2 Nausea with vomiting, unspecified; R10.9 Unspecified abdominal pain; F31.9 Bipolar disorder, unspecified; F17.200 Nicotine dependence, unspecified, uncomplicated; Z98.51 Tubal ligation status; Z53.21 Procedure and treatment not carried out due to patient leaving prior to being seen by health care provider
CPT/HCPCS: 36415; 80053; 81001; 82805; 82962; 83690; 85025

== ENCOUNTER 2017-09-24 22:32 | Emergency (ER) | payer SELFPAY ==
[2017-09-24 23:33] LABS: Basophils % (Auto) 0.3 % (0.0-1.8); Eosinophils # (Auto) 0.3 K/mm3 (0.0-0.4); Eosinophils % (Auto) 4.8 % (0.0-4.3); Hematocrit 37.8 % (30.3-42.9); Lymphocytes # (Auto) 3.2 K/mm3 (1.2-5.4); Lymphocytes % (Auto) 51.5 % (13.4-35.0); Mean Corpuscular HGB Conc 34 % (30-34); Mean Corpuscular Hemoglobin 29 pg (28-32); Mean Corpuscular Volume 83 fl (79-97); Monocytes # (Auto) 0.4 K/mm3 (0.0-0.8); Platelet Count 300 K/mm3 (140-440); Red Blood Count 4.53 M/mm3 (3.65-5.03); Red Cell Distribution Width 14.4 % (13.2-15.2)
[2017-09-24 23:47] LABS: BUN/Creatinine Ratio 13; Blood Urea Nitrogen 8 mg/dL (7-17); Calcium 9.8 mg/dL (8.4-10.2); Hemolysis Index 6
[2017-09-25 00:13] LABS: Hyaline Casts,Urine 1 /LPF; Mucus,Urine 1+ /HPF
[2017-09-25 00:28] LABS: Color,Urine Yellow (Yellow)
[2017-09-25 00:29] LABS: Bilirubin,Urine Negative (Negative); Blood,Urine 3+ (Negative)
[2017-09-25 00:30] LABS: Urobilinogen,Urine < 2.0 mg/dL (<2.0)
[2017-09-25] MEDS ORDERED: HumuLIN R SUB-Q ONE ×3 (01:43→03:10)
[2017-09-25] MEDS ORDERED: TYLENOL PO ONE (01:44)
--- NOTE | 2017-09-25 01:47 | Emergency Department Report ---
ED General Adult HPI - General Chief complaint: Hyperglycemia Stated complaint: HYPERGLYCEMIA Time Seen by Provider: 09/25/17 01:37 Source: patient Mode of arrival: Ambulatory Limitations: No Limitations - History of Present Illness Initial comments: Patient is 32 years old female with history of diabetes on Lantus 14 units at night and Humalog sliding scale. Patient presented to the ER complaining of elevated blood sugar. Patient stated that she is out of her Lantus and Humalog for the last 11 days goes she does not have insurance. Patient complaining of generalized weakness. She denied any chest pain, shortness of breath, abdominal pain, dysuria. She is complaining of bilateral leg pain which is chronic neuropathy and she is taking Neurontin for that. Severity scale (0 -10): 7 - Related Data Home Medications Medication Instructions Recorded Confirmed Last Taken Insulin Glargine [Lantus VIAL] 30 units SUB-Q QHS 11/26/14 08/14/17 11/26/14 Insulin Lispro [HumaLOG VIAL] 0 units SQ AC 11/26/14 08/14/17 08/14/17 buPROPion XL [Wellbutrin Xl] 150 mg PO QAM 08/14/17 08/14/17 08/14/17 Previous Rx's Medication Instructions Recorded Last Taken Type Gabapentin [Neurontin] 300 mg PO BID #60 cap 09/25/17 Unknown Rx Insulin Glargine [Lantus] 40 units SQ QHS #3 vial 09/25/17 Unknown Rx Insulin Lispro [HumaLOG VIAL] 5 units SQ AC #3 vial 09/25/17 Unknown Rx Allergies Allergy/AdvReac Type Severity Reaction Status Date / Time No Known Allergies Allergy Verified 02/17/13 23:39 ED Review of Systems ROS: Stated complaint: HYPERGLYCEMIA Other details as noted in HPI Comment: All other systems reviewed and negative Constitutional: denies: chills, fever Respiratory: denies: cough, orthopnea, shortness of breath, SOB with exertion, SOB at rest, wheezing Cardiovascular: denies: chest pain, palpitations, dyspnea on exertion, orthopnea , paroxysmal nocturnal dyspnea Gastrointestinal: denies: abdominal pain, nausea, vomiting, diarrhea, constipation, hematemesis, melena, hematochezia Genitourinary: denies: urgency, dysuria, frequency, hematuria, discharge Skin: denies: rash, lesions Neurological: denies: headache, weakness, numbness, paresthesias, confusion, abnormal gait ED Past Medical Hx - Past Medical History Hx Hypertension: No Hx CVA: No Hx Heart Attack/AMI: No Hx Congestive Heart Failure: No Hx Diabetes: Yes (Type 1) Hx Deep Vein Thrombosis: No Hx Pulmonary Embolism: No Hx GERD: No Hx Liver Disease: No Hx Renal Disease: No Hx Sickle Cell Disease: No Hx Arthritis: No Hx Headaches / Migraines: No Hx Seizures: No Hx Kidney Stones: No Hx Psychiatric Treatment: Yes (four times in [place], [place].BI Polar disorder) Hx Asthma: No Hx COPD: No Hx Dementia: No Hx HIV: No Additional medical history: bipolar Disorder - Surgical History Hx Coronary Stent: No Hx Open Heart Surgery: No Hx Pacemaker: No Hx Internal Defibrillator: No Hx Cholecystectomy: No Hx Appendectomy: No Hx Breast Surgery: No Additional Surgical History: tubal ligation - Social History Smoking Status: Never Smoker Substance Use Type: None - Medications Home Medications: Home Medications Medication Instructions Recorded Confirmed Last Taken Type Insulin Glargine [Lantus VIAL] 30 units SUB-Q QHS 11/26/14 08/14/17 11/26/14 History Insulin Lispro [HumaLOG VIAL] 0 units SQ AC 11/26/14 08/14/17 08/14/17 History buPROPion XL [Wellbutrin Xl] 150 mg PO QAM 08/14/17 08/14/17 08/14/17 History Gabapentin [Neurontin] 300 mg PO BID #60 cap 09/25/17 Unknown Rx Insulin Glargine [Lantus] 40 units SQ QHS #3 vial 09/25/17 Unknown Rx Insulin Lispro [HumaLOG VIAL] 5 units SQ AC #3 vial 09/25/17 Unknown Rx ED Physical Exam - General Limitations: No Limitations General appearance: alert, in no apparent distress - Head Head exam: Present: atraumatic, normocephalic, normal inspection - Eye Eye exam: Present: normal appearance - ENT ENT exam: Present: normal exam, normal orophraynx, mucous membranes moist, normal external ear exam - Neck Neck exam: Present: normal inspection, full ROM. Absent: tenderness, meningismus, lymphadenopathy, thyromegaly - Respiratory Respiratory exam: Present: normal lung sounds bilaterally. Absent: respiratory distress, wheezes, rales, rhonchi, stridor, chest wall tenderness, accessory muscle use, decreased breath sounds, prolonged expiratory - Cardiovascular Cardiovascular Exam: Present: regular rate, normal rhythm, normal heart sounds - GI/Abdominal GI/Abdominal exam: Present: soft, normal bowel sounds. Absent: distended, tenderness, guarding, rebound, rigid, organomegaly, mass, bruit, pulsatile mass , hernia - Extremities Exam Extremities exam: Present: normal inspection, full ROM, normal capillary refill. Absent: calf tenderness - Back Exam Back exam: Present: normal inspection, full ROM. Absent: tenderness, CVA tenderness (R), CVA tenderness (L), muscle spasm, paraspinal tenderness, vertebral tenderness, rash noted - Neurological Exam Neurological exam: Present: alert, oriented X3, CN II-XII intact, normal gait, reflexes normal - Skin Skin exam: Present: warm, intact, normal color ED Course Vital Signs 09/24/17 09/25/17 09/25/17 22:42 01:40 01:50 Temperature 98.6 F 98.3 F Pulse Rate 106 H 88 Respiratory 18 16 16 Rate Blood Pressure 134/84 Blood Pressure 108/76 [Right] O2 Sat by Pulse 97 98 Oximetry 09/25/17 09/25/17 02:50 04:48 Temperature Pulse Rate 95 H Respiratory 16 16 Rate Blood Pressure Blood Pressure 121/83 [Right] O2 Sat by Pulse 98 Oximetry - Reevaluation(s) Reevaluation #1: 09/25/17 04:10 Patient stated that she is feeling better. Blood sugar now is 285. ED Medical Decision Making - Lab Data Result diagrams: 09/24/17 22:49 09/24/17 22:49 Critical care attestation.: If time is entered above; I have spent that time in minutes in the direct care of this critically ill patient, excluding procedure time. ED Disposition Clinical Impression: Hyperglycemia Disposition: DC-01 TO HOME OR SELFCARE Is pt being admited?: No Condition: Stable Instructions: Diabetic Hyperglycemia (ED) Prescriptions: Insulin Glargine [Lantus] 40 units SQ QHS #3 vial Gabapentin [Neurontin] 300 mg PO BID #60 cap Insulin Lispro [HumaLOG VIAL] 5 units SQ AC #3 vial Referrals: PRIMARY CARE, [Primary Care Provider] - 3-5 Days
[2017-09-25] MEDS ORDERED: HumuLIN R IV ONE (03:07)
[2017-09-25 04:49] VITALS: BP 121/83
== END 2017-09-25 04:48 | disposition home or self-care (01) ==
LOC: ED 22:32
DX: M62.838 Other muscle spasm (principal); R07.89 Other chest pain; F17.200 Nicotine dependence, unspecified, uncomplicated; Z79.899 Other long term (current) drug therapy
CPT/HCPCS: 36415; 80048; 81001; 82805; 82962; 85025; 96372; 99284; J1815

== ENCOUNTER 2018-08-21 11:24 | Outpatient (CLI) | payer MEDICAID ==
[2018-08-21 12:14] LABS: Alanine Aminotransferase 7 units/L (7-56); Albumin 4.3 g/dL (3.9-5); Blood Urea Nitrogen 9 mg/dL (7-17)
[2018-08-21 12:16] LABS: Bilirubin,Direct < 0.2 mg/dL (0-0.2)
--- NOTE | 2018-08-21 12:31 | XRay Report ---
CHEST 2 VIEWS INDICATION: WEIGHT LOSS, PNEUMONIA. COMPARISON: None FINDINGS: Support devices: None. Heart: Within normal limits. Lungs/pleura: No acute air space or interstitial disease. No pneumothorax. Additional findings: None. IMPRESSION: Unremarkable chest x-ray. Signer Name: Tushar Ward Jr, MD Signed: 08/21/2018 12:26 PM Workstation Name: [id number]
--- NOTE | 2018-08-21 14:26 | Cat Scan Report ---
CT abdomen pelvis w con INDICATION / CLINICAL INFORMATION: Rapid weight loss over last 7 months (100 pounds) with loss of appetite. Right breast lump. TECHNIQUE: The patient received 100 cc Omnipaque [address] scans at this location are performed using CT dose reduction for ALARA by means of automated exposure control. COMPARISON: None available. FINDINGS: ABDOMEN: The liver, spleen, gallbladder, bile ducts, pancreas, adrenal glands, kidneys and bowel demo nstrate no significant abnormality. No adenopathy is seen. The lung bases are clear. PELVIS: The distal ureters and urinary bladder are normal. The uterus and adnexal regions are unremar kable. I see no evidence of diverticulitis or appendicitis. I do not identify a hernia. No abnormal m ass or fluid collection is seen. No osseous abnormality is identified. IMPRESSION: Negative study. Signer Name: Kvng Barros MD Signed: 08/21/2018 2:22 PM Workstation Name: [id number]
== END 2018-08-21 11:25 | disposition home or self-care (01) ==
LOC: CT 11:24
DX: R63.4 Abnormal weight loss (principal); E11.9 Type 2 diabetes mellitus without complications; E66.9 Obesity, unspecified
CPT/HCPCS: 36415; 71046; 74177; 80076; 82565; 84520; Q9967

== ENCOUNTER 2018-09-11 06:51 | Day surgery (SDC) | payer MEDICAID ==
[2018-09-11] MEDS ORDERED: NACL 0.9% 1000 ML 1,000 ML IV SCH (08:00)
[2018-09-11] MEDS ORDERED: XYLOCAINE MPF 2% ONE (09:00)
[2018-09-11] MEDS ORDERED: WATER FOR IRRIG STERILE IR ONE (09:17)
[2018-09-11] MEDS ORDERED: HumuLIN R IV ONE (09:30)
[2018-09-11] MEDS ORDERED: DIPRIVAN 10 MG/ML IV ONE (10:31)
--- NOTE | 2018-09-11 10:50 | Procedure Note ---
Date of procedure: 09/11/18 Pre-op diagnosis: Dyspepsia Post-op diagnosis: other (Gastroparesis/Moderate,Erosive Esophagitis/Gastritis/R/O Celiac Disease) Procedure: EGD with Biopsy Anesthesia: MAC Surgeon: BRENDAN BENJAMIN Estimated blood loss: minimal Pathology: list Specimen disposition: to lab Condition: stable Disposition: same day (Treat with PPI and Regaln. Avoid aspirin and NSAID for 5 days. Patient will get a prescription for Regular Insulin to take as a Sliding Scale and strongly adviced to follow up with her [employer] for better control of her Diabetes Mellitus (type 2).)
[2018-09-11 11:45] VITALS: BP 114/67
--- NOTE | 2018-09-11 14:36 | Operative Report ---
PROCEDURE: Esophagogastroduodenoscopy with biopsy. INDICATIONS: A 33-year-old -[place] female with an underlying history of diabetes mellitus, which appears to be uncontrolled. She has been having increasing weight loss. CT scan of the abdomen and pelvis did not show any significant pathology. EGD was done for further assessment of her dyspeptic symptoms and to see if she had any associated peptic ulcer disease. DESCRIPTION OF PROCEDURE: Procedure was done after getting informed consent with MAC anesthesia. Initially, the patient had elevated blood sugar and required 10 units of insulin to be given IV to bring it down to 295, prior to doing the procedure. Procedure was done with MAC anesthesia. Instrument was passed through the hypopharynx into the esophagus, which showed moderate distal erosive esophagitis. Biopsy was done from the distal esophagus. Stomach showed presence of gastroparesis. The pylorus was patent. There was some antral gastritis noted. Biopsy was done from the gastric antrum, gastric body and angular incisura to rule for H. pylori and atrophic gastritis. The pylorus was patent. The duodenum in the first and second portion appeared normal. Biopsy was done to rule out for possible celiac disease. ASSESSMENT: Dyspepsia, diabetes mellitus type 2, gastroparesis, gastritis, moderate distal erosive esophagitis, rule out celiac disease. There was minimal bleeding from the biopsy sites. No complications associated with the procedure. Minimal bleeding associated with the procedure. The patient will be treated with Reglan and PPI, asked to avoid aspirin and aspirin-related products for the next few days and followup in the office in 1-2 weeks' time. 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 The patient will also be given a prescription for regular insulin to be taken on a sliding scale type until the patient has a chance to see the patient's supervisor fireworks assembly. The procedure was done in the GI lab with assistance and presence of the GI lab team and with the assistance of anesthesia, the GI lab team included Yadi ESCALONA and Alice serrato. JOB# [id number] SACHA/GIO
== END 2018-09-11 06:52 | disposition home or self-care (01) ==
LOC: GIO 06:51
DX: K29.50 Unspecified chronic gastritis without bleeding (principal); K21.0 Gastro-esophageal reflux disease with esophagitis; R63.4 Abnormal weight loss; F17.210 Nicotine dependence, cigarettes, uncomplicated; E13.10 Other specified diabetes mellitus with ketoacidosis without coma; F31.9 Bipolar disorder, unspecified; F41.9 Anxiety disorder, unspecified; K27.9 Peptic ulcer, site unspecified, unspecified as acute or chronic, without hemorrhage or perforation; Z80.0 Family history of malignant neoplasm of digestive organs; Z79.899 Other long term (current) drug therapy
CPT/HCPCS: 43239; 81025; 82962; 88305; 88342; J2704; J7030; J1815

== ENCOUNTER 2019-02-24 18:59 | Emergency (ER) | payer MEDICARE ==
[2019-02-24 20:06] LABS: Bilirubin,Urine NEG (Negative); Blood,Urine NEG (Negative); Color,Urine Yellow (Yellow); Protein,Urine <15 mg/dL mg/dL (Negative); Urobilinogen,Urine < 2.0 mg/dL (<2.0)
[2019-02-24] MEDS ORDERED: INSULIN REGULAR, HUMAN 100 UNITS/1 ML IV ONE (20:36)
[2019-02-24] MEDS ORDERED: SODIUM CHLORIDE 0.9% 1000 ML 1,000 ML IV ONE (20:36)
[2019-02-24 20:43] LABS: Hematocrit 36.1 % (30.3-42.9); Hemoglobin 11.9 gm/dl (10.1-14.3); Mean Corpuscular HGB Conc 33 % (30-34); Mean Corpuscular Volume 83 fl (79-97); Platelet Count 285 K/mm3 (140-440); Red Blood Count 4.34 M/mm3 (3.65-5.03); Red Cell Distribution Width 14.2 % (13.2-15.2)
--- NOTE | 2019-02-24 21:24 | Emergency Department Report ---
ED General Adult HPI - General Chief complaint: Hyperglycemia Stated complaint: DKA/SHAKY Time Seen by Provider: 02/24/19 21:15 Source: patient Mode of arrival: Ambulatory Limitations: No Limitations - History of Present Illness Initial comments: Ms. Gregory is a very pleasant 33 yo female with hx of IDDM who presents with elevated blood sugar reading for one month. She has been without insulin without health insurance. She has had increasted thirst and urination. +nausea/dizziness/chills. She was sent from vender office Dr. Toney Sargent. IN his office, Ms. Carson had BG > 600 and large ketones in her urine. -: Gradual, month(s) (1) Severity scale (0 -10): 0 Consistency: constant Improves with: none Worsens with: none Associated Symptoms: other (nausea and dizziness increased thirst) - Related Data Home Medications Medication Instructions Recorded Confirmed Last Taken glipiZIDE 5 mg PO QID 09/11/18 09/11/18 09/10/18 Previous Rx's Medication Instructions Recorded Last Taken Type Pantoprazole [Protonix] 40 mg PO QDAY 30 Days #30 tablet 09/11/18 Unknown Rx Allergies Allergy/AdvReac Type Severity Reaction Status Date / Time No Known Allergies Allergy Verified 02/17/13 23:39 ED Review of Systems ROS: Stated complaint: DKA/SHAKY Other details as noted in HPI Comment: All other systems reviewed and negative Constitutional: malaise. denies: fever Respiratory: denies: cough, shortness of breath Endocrine: increased thirst Gastrointestinal: nausea. denies: abdominal pain ED Past Medical Hx - Past Medical History Previous Medical History?: Yes Hx Hypertension: No Hx CVA: No Hx Heart Attack/AMI: No Hx Congestive Heart Failure: No Hx Diabetes: Yes Hx Deep Vein Thrombosis: No Hx Pulmonary Embolism: No Hx GERD: No Hx Liver Disease: No Hx Renal Disease: No Hx Sickle Cell Disease: No Hx Arthritis: No Hx Headaches / Migraines: No Hx Seizures: No Hx Kidney Stones: No Hx Psychiatric Treatment: Yes (four times in [place], [place].BI Polar disorder) Hx Asthma: No Hx COPD: No Hx Dementia: No Hx HIV: No Additional medical history: bipolar Disorder - Surgical History Past Surgical History?: Yes Hx Coronary Stent: No Hx Open Heart Surgery: No Hx Pacemaker: No Hx Internal Defibrillator: No Hx Cholecystectomy: No Hx Appendectomy: No Hx Breast Surgery: No Additional Surgical History: tubal ligation - Social History Smoking Status: Current Every Day Smoker Substance Use Type: None - Medications Home Medications: Home Medications Medication Instructions Recorded Confirmed Last Taken Type Pantoprazole [Protonix] 40 mg PO QDAY 30 Days #30 tablet 09/11/18 Unknown Rx glipiZIDE 5 mg PO QID 09/11/18 09/11/18 09/10/18 History ED Physical Exam - General Limitations: No Limitations General appearance: alert, in no apparent distress - Head Head exam: Present: atraumatic, normocephalic - Eye Eye exam: Present: normal appearance - ENT ENT exam: Present: mucous membranes moist - Neck Neck exam: Present: normal inspection, full ROM - Respiratory Respiratory exam: Present: normal lung sounds bilaterally. Absent: respiratory distress, wheezes, rales, rhonchi - Cardiovascular Cardiovascular Exam: Present: regular rate, normal rhythm, normal heart sounds. Absent: systolic murmur, diastolic murmur, rubs, gallop - GI/Abdominal GI/Abdominal exam: Present: soft, normal bowel sounds. Absent: distended, tenderness, guarding, rebound - Extremities Exam Extremities exam: Present: normal inspection - Neurological Exam Neurological exam: Present: alert, oriented X3 - Psychiatric Psychiatric exam: Present: normal affect, normal mood - Skin Skin exam: Present: warm, dry, intact, normal color. Absent: rash ED Course Vital Signs 02/24/19 02/24/19 02/24/19 19:07 19:13 19:49 Temperature 98.4 F 98.1 F Pulse Rate 106 H 106 H 105 H Respiratory 18 18 18 Rate Blood Pressure 125/79 125/79 126/82 Blood Pressure [Right] O2 Sat by Pulse 100 100 100 Oximetry 02/24/19 02/24/19 02/24/19 20:48 21:00 22:00 Temperature 98.2 F Pulse Rate 85 89 84 Respiratory 14 10 L 10 L Rate Blood Pressure 126/83 119/77 Blood Pressure 115/75 [Right] O2 Sat by Pulse 100 100 100 Oximetry ED Medical Decision Making - Lab Data Result diagrams: 02/24/19 20:14 02/24/19 20:14 - Medical Decision Making Soumya is a 33-year-old female with history of insulin-dependent diabetes for the past 4 years. Due to lack of health insurance she's been unable to obtain insulin. She visited vender Dr. Rosario today. His office provided a 7 day emergency supply of insulin. She has recently been able to obtain disability. health insurance will be activated next month. Dr. Rosario was concerned for DKA. There was no ketonuria or significant acidosis on chemistr today. She received IV fluid therapy and regular insulin. Just prior to discharge her blood sugar is 424. She plans to take additional insulin at home. 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 She is discharged home in stable condition without evidence of diabetic ketoacidosis. Critical care attestation.: If time is entered above; I have spent that time in minutes in the direct care of this critically ill patient, excluding procedure time. ED Disposition Clinical Impression: Acute hyperglycemia, Insulin dependent diabetes mellitus Disposition: DC-01 TO HOME OR SELFCARE Is pt being admited?: No Does the pt Need Aspirin: No Condition: Stable Referrals: NEHA CURTIS MD [Staff Physician] - 3-5 Days
[2019-02-24 21:35] LABS: Alanine Aminotransferase 9 units/L (7-56); Albumin 3.8 g/dL (3.9-5); BUN/Creatinine Ratio 25; Blood Urea Nitrogen 15 mg/dL (7-17); Calcium 9.5 mg/dL (8.4-10.2); Hemolysis Index 79
[2019-02-24 22:51] VITALS: BP 130/83
== END 2019-02-24 23:07 | disposition home or self-care (01) ==
LOC: ED 18:59
DX: E10.65 Type 1 diabetes mellitus with hyperglycemia (principal); F31.9 Bipolar disorder, unspecified; F17.200 Nicotine dependence, unspecified, uncomplicated; Z98.51 Tubal ligation status; Z79.899 Other long term (current) drug therapy
CPT/HCPCS: 36415; 80053; 81001; 82805; 82962; 85027; 87086; 96360; 96361; 99284; J7030

== ENCOUNTER 2021-03-30 20:41 | Inpatient (IN) | payer MEDICARE ==
[2021-03-30 22:20] LABS: Mean Corpuscular HGB Conc 28 % (30-34); Platelet Count 259 K/mm3 (140-440); Red Blood Count 3.81 M/mm3 (3.65-5.03)
[2021-03-30 22:23] LABS: Alanine Aminotransferase 11 units/L (7-56); Albumin 3.9 g/dL (3.9-5); Blood Urea Nitrogen 10 mg/dL (7-17); Calcium 9.2 mg/dL (8.4-10.2); Hematocrit 23.8 % (30.3-42.9); Hemoglobin 6.6 gm/dl (10.1-14.3); Hemolysis Index 1; Mean Corpuscular Volume 63 fl (79-97); Red Cell Distribution Width 23.6 % (13.2-15.2)
[2021-03-30 22:51] LABS: BUN/Creatinine Ratio 17
[2021-03-31] MEDS ORDERED: SODIUM CHLORIDE 0.9% 1000 ML 1,000 ML IV ONE ×2 (00:11→00:25)
[2021-03-31] MEDS ORDERED: diphenhydrAMINE 50 MG/ML VIAL IV ONE (00:25)
[2021-03-31] MEDS ORDERED: methylPREDNISolone Sod Succinate 40 MG/1 ML INJ IV ONE (00:25)
[2021-03-31] MEDS ORDERED: FAMOTIDINE 20 MG/2 ML INJ IV ONE (00:25)
[2021-03-31] MEDS ORDERED: SODIUM CHLORIDE 0.9% 500 ML 500 ML IV ONE (00:42)
[2021-03-31] MEDS ORDERED: LACTATED RINGERS 1,000 ML IV ONE (00:43)
[2021-03-31] MEDS ORDERED: INSULIN REGULAR, HUMAN 100 UNITS/1 ML IV ONE (00:43)
--- NOTE | 2021-03-31 00:45 | Emergency Department Report ---
ED General Adult HPI - General Chief complaint: Vaginal Bleeding Stated complaint: VAGINAL BLEEDING/ALLERGIC REACTION Time Seen by Provider: 03/31/21 00:32 Source: patient, RN notes reviewed, old records reviewed Mode of arrival: Ambulatory Limitations: No Limitations - History of Present Illness Initial comments: The patient was evaluated in the emergency department for symptoms described in the history of present illness. He/she was evaluated in the context of the global COVID-19 pandemic, which necessitated consideration that the patient might be at risk for infection with the virus that causes COVID-19. Institutional protocols and algorithms that pertain to the evaluation of patients at risk for COVID-19 are in a state of rapid change based on information released by regulatory bodies including the CDC and federal and state organizations. These policies and algorithms were followed during the patient's care in the emergency department. Please note that these policies, procedures and recommendations changed on a rapid basis. The patient is a 35-year-old female, who presents to the ER today with a primary complaint of "I think I having allergic reaction." The patient reports that she took 6 tablets of tranexamic acid, as prescribed by an outpatient physician, for heavy vaginal bleeding. She reports heavy vaginal bleeding for 1 week. She denies physical pain. She reports that she discussed this with her outpatient physician, who prescribed the aforementioned medication. She reports cutaneous skin itching and pruritus, but otherwise denies additional allergic symptoms. She feels slightly weak and lightheaded. She denies , and denies urinary symptoms -: Gradual, days(s) Consistency: constant Improves with: none Worsens with: medication, movement - Related Data Home Medications Medication Instructions Recorded Confirmed Last Taken glipiZIDE 5 mg PO QID 09/11/18 09/11/18 09/10/18 Previous Rx's Medication Instructions Recorded Last Taken Type Pantoprazole [Protonix] 40 mg PO QDAY 30 Days #30 tablet 09/11/18 Unknown Rx Allergies Allergy/AdvReac Type Severity Reaction Status Date / Time No Known Allergies Allergy Verified 02/17/13 23:39 ED Review of Systems ROS: Stated complaint: VAGINAL BLEEDING/ALLERGIC REACTION Other details as noted in HPI Constitutional: malaise. denies: fever Eyes: denies: eye discharge ENT: denies: epistaxis Respiratory: denies: cough Cardiovascular: denies: chest pain, syncope Gastrointestinal: denies: abdominal pain, nausea, vomiting, hematemesis, melena, hematochezia Genitourinary: abnormal menses. denies: dysuria Musculoskeletal: denies: back pain Neurological: weakness Hematological/Lymphatic: denies: easy bleeding ED Past Medical Hx - Past Medical History Previous Medical History?: Yes Hx Hypertension: No Hx CVA: No Hx Heart Attack/AMI: No Hx Congestive Heart Failure: No Hx Diabetes: Yes Hx Deep Vein Thrombosis: No Hx Pulmonary Embolism: No Hx GERD: No Hx Liver Disease: No Hx Renal Disease: No Hx Sickle Cell Disease: No Hx Arthritis: No Hx Headaches / Migraines: No Hx Seizures: No Hx Kidney Stones: No Hx Psychiatric Treatment: Yes (four times in [place], [place].BI Polar disorder) Hx Asthma: No Hx COPD: No Hx Dementia: No Hx HIV: No Additional medical history: bipolar Disorder - Surgical History Past Surgical History?: Yes Hx Coronary Stent: No Hx Open Heart Surgery: No Hx Pacemaker: No Hx Internal Defibrillator: No Hx Cholecystectomy: No Hx Appendectomy: No Hx Breast Surgery: No Additional Surgical History: tubal ligation - Social History Smoking Status: Current Every Day Smoker Substance Use Type: None - Medications Home Medications: Home Medications Medication Instructions Recorded Confirmed Last Taken Type Pantoprazole [Protonix] 40 mg PO QDAY 30 Days #30 tablet 09/11/18 Unknown Rx glipiZIDE 5 mg PO QID 09/11/18 09/11/18 09/10/18 History ED Physical Exam - General Limitations: No Limitations General appearance: alert, anxious - Head Head exam: Present: atraumatic, normocephalic - Eye Eye exam: Present: normal appearance (Bilateral conjunctiva are pale), EOMI. Absent: nystagmus - ENT ENT exam: Present: normal exam, normal orophraynx, mucous membranes moist, norm al external ear exam - Neck Neck exam: Present: normal inspection, full ROM. Absent: tenderness, meningismus - Respiratory Respiratory exam: Present: normal lung sounds bilaterally. Absent: respiratory distress, wheezes, rales, rhonchi, stridor, decreased breath sounds - Cardiovascular Cardiovascular Exam: Present: regular rate, normal rhythm, normal heart sounds. Absent: bradycardia, tachycardia, irregular rhythm, systolic murmur, diastolic murmur, rubs, gallop - GI/Abdominal GI/Abdominal exam: Present: soft. Absent: distended, tenderness, guarding, rebound, rigid, pulsatile mass - External exam: Present: normal external exam, bleeding, other (Laminator Hand by GUILLERMO FARIA) - Extremities Exam Extremities exam: Present: normal inspection, full ROM, other (2+ pulses noted in the bilateral upper and lower extremities. There is no palpable cord. negative Homans sign. Muscular compartments are soft. The pelvis is stable.). Absent: pedal edema, calf tenderness - Back Exam Back exam: Present: normal inspection. Absent: tenderness, CVA tenderness (R), CVA tenderness (L), paraspinal tenderness, vertebral tenderness - Neurological Exam Neurological exam: Present: alert, oriented X3, other (No facial droop. Tongue midline. Extraocular movements intact bilaterally. Facial sensation intact to light touch in V1, V2, V3 distribution bilaterally. 5 and a 5 strength in 4 extremities. Sensation intact to light touch in 4 extremities.). Absent: motor sensory deficit - Psychiatric Psychiatric exam: Present: anxious - Skin Skin exam: Present: warm, dry, intact, normal color. Absent: rash ED Course Vital Signs 03/30/21 03/31/21 03/31/21 20:49 00:49 01:01 Temperature 98.3 F Pulse Rate 103 H 97 H Respiratory 16 15 13 Rate Blood Pressure 116/72 O2 Sat by Pulse 100 100 Oximetry O2 Sat by Pulse Oximetry [ Digit-Finger] 03/31/21 03/31/21 03/31/21 01:15 01:27 01:31 Temperature Pulse Rate 93 H 98 H Respiratory 16 15 Rate Blood Pressure O2 Sat by Pulse 100 100 Oximetry O2 Sat by Pulse 99 Oximetry [ Digit-Finger] 03/31/21 03/31/21 01:45 01:59 Temperature Pulse Rate 99 H Respiratory 16 Rate Blood Pressure O2 Sat by Pulse 100 100 Oximetry O2 Sat by Pulse Oximetry [ Digit-Finger] - Reevaluation(s) Reevaluation #1: 03/31/21 01:02 Patient saturating 100% on room air, and has no evidence of airway compromise at this time - Pulse Oximetry Interpretation Digit-Finger Initial Pulse Oximetry Readin O2 Sat by Pulse Oximetry: 99 Actions Taken: none ED Medical Decision Making - Lab Data Result diagrams: 03/30/21 21:47 03/30/21 21:47 Vital Signs 03/30/21 20:49 Temperature 98.3 F Pulse Rate 103 H Respiratory 16 Rate Blood Pressure 116/72 O2 Sat by Pulse 100 Oximetry Lab Results 03/30/21 03/30/21 03/30/21 Range/Units 21:47 21:47 21:47 WBC 3.9 L (4.5-11.0) K/mm3 RBC 3.81 (3.65-5.03) M/mm3 Hgb 6.6 L (10.1-14.3) gm/dl Hct 23.8 L (30.3-42.9) % MCV 63 L (79-97) fl MCH 17 L (28-32) pg MCHC 28 L (30-34) % RDW 23.6 H (13.2-15.2) % Plt Count 259 (140-440) K/mm3 Lymph % (Auto) Alterations Sewer Seg Neutrophils % Alterations Sewer Sodium 132 L (137-145) mmol/L Potassium 3.9 (3.6-5.0) mmol/L Chloride 95.5 L (98-107) mmol/L Carbon Dioxide 25 (22-30) mmol/L Anion Gap 15 mmol/L BUN 10 (7-17) mg/dL Creatinine 0.6 (0.6-1.2) mg/dL Estimated GFR > 60 ml/min BUN/Creatinine Ratio 17 % Glucose 496 H (65-100) mg/dL Calcium 9.2 (8.4-10.2) mg/dL Total Bilirubin < 0.20 (0.1-1.2) mg/dL AST 12 (5-40) units/L ALT 11 (7-56) units/L Alkaline Phosphatase 61 (35-129) units/L Total Protein 7.5 (6.3-8.2) g/dL Albumin 3.9 (3.9-5) g/dL Albumin/Globulin Ratio 1.1 % HCG, Qual Negative (Negative) - Radiology Data Radiology results: report reviewed, image reviewed ULTRASOUND PELVIS INDICATION / CLINICAL INFORMATION: painless vaginal bleeding. TECHNIQUE: Transabdominal. Duplex Color Doppler used: Yes. COMPARISON: CT dated 08/21/2018. FINDINGS: UTERUS: The uterus measures 10.8 cm. The uterus demonstrates a normal sonographic appearance. The endometrial stripe measures 0.3 cm. RIGHT ADNEXA: No significant ovarian cyst or mass. Normal color Doppler blood flow. LEFT ADNEXA: No significant ovarian cyst or mass. Normal color Doppler blood flow. URINARY BLADDER: No significant abnormality. FREE FLUID: Moderate to large volume free fluid within the cul-de-sac and bilateral adnexa. ADDITIONAL FI NDINGS: None. IMPRESSION: 1. Moderate to large free fluid in the cul-de-sac and bilateral adnexa. This is greater than expected with physiologic free fluid though remains nonspecific. Consider further evaluation with CT of the abdomen and pelvis with contrast. 2. No significant sonographic abnormality of the uterus or either ovary. No evidence of ovarian torsion. Signer Name: Surya Marie MD Signed: 03/31/2021 2:12 AM Workstation Name: [id number] - Medical Decision Making Differential diagnosis, including but not limited to: Anaphylactoid reaction, allergic reaction, microcytic symptomatic anemia, hyperglycemia, menorrhagia, metrorrhagia, dysfunctional uterine bleeding Assessment and plan: 35-year-old female with symptomatic microcytic anemia, who is not , secondary to heavy vaginal bleeding for 1 week, with a soft benign abdomen, without rebound, guarding or peritoneal signs, with secondary complaint of skin itching in the context of taking tranexamic acid, without evidence of airway compromise. Patient is agreeable to packed red blood cell transfusion. Patient is agreeable to admission and hospitalization for the aforementioned. We will obtain obstetric/gynecologic ultrasound. We will transfuse the patient 1 unit packed red blood cells, give lactated Ringer's, Benadryl, and Pepcid. We will also provide Solu-Medrol. Contacted j2ee application developer on-call, Dr. Edmund Nolasco Discussed the patient's history, physical, laboratory studies and plan of care. Given multiple medical issues, including acute symptomatic microcytic anemia, and hyperglycemia which is poorly controlled, the aforementioned j2ee application developer advises admission to the medical service and indicates that the gynecology group will follow in consultation. The patient is agreeable to admission hospitalization for the aforementioned. Hospital physician, Dr. Perdomo to admit to [facility] Critical Care Time: Yes Critical care time in (mins) excluding proc time.: 35 Critical care attestation.: If time is entered above; I have spent that time in minutes in the direct care of this critically ill patient, excluding procedure time. ED Disposition Clinical Impression: Hyperglycemia, Microcytic anemia, Episode of heavy vaginal bleeding, Drug reaction Disposition: ADMITTED INPATIENT Is pt being admited?: Yes Does the pt Need Aspirin: No Condition: Good
[2021-03-31] MEDS ORDERED: methylPREDNISolone Sod Succinate 125 MG/2 ML INJ IV ONE (01:03)
[2021-03-31] MEDS ORDERED: ALBUTEROL 2.5 MG/3 ML NEBU IH PRN (01:35)
[2021-03-31] MEDS ORDERED: ACETAMINOPHEN 325 MG TAB PO PRN (01:35)
[2021-03-31] MEDS ORDERED: HYDROmorphone 1 MG/1 ML INJ IV PRN (01:35)
[2021-03-31] MEDS ORDERED: MORPHINE 2 MG/1 ML INJ IV PRN (01:35)
[2021-03-31] MEDS ORDERED: ONDANSETRON 4 MG/2 ML INJ IV PRN (01:35)
[2021-03-31] MEDS ORDERED: diphenhydrAMINE 50 MG/ML VIAL IV PRN (01:38)
[2021-03-31] MEDS ORDERED: DEXTROSE 10% *Hypoglycemia IV PRN ×2 (01:41→08:12)
--- NOTE | 2021-03-31 01:44 | History and Physical Report ---
History of Present Illness Date of examination: 03/31/21 Date of admission: 03/31/21 Chief complaint: Vaginal bleeding History of present illness: 35-year-old female with symptomatic microcytic anemia, who is not was brought to the emergency room because of heavy vaginal bleeding for 1 week.patient presents to the ER today with a primary complaint of "I think I having allergic reaction." The patient reports that she took 6 tablets of tranexamic acid, as prescribed by an outpatient physician, for heavy vaginal bleeding. She reports heavy vaginal bleeding for 1 week. She denies physical pain. She reports that she discussed this with her outpatient physician, who prescribed the aforementioned medication. She reports cutaneous skin itching and pruritus, but otherwise denies additional allergic symptoms. She feels slightly weak and lightheaded. In the emergency room patient is found to have hemoglobin of 6.6 and hematocrit 23.8, patient blood glucose 496 Contacted lawn and garden technician on-call, Dr. Edmund Nolasco Discussed the patient's history, physical, laboratory studies and plan of care. Given multiple medical issues, including acute symptomatic microcytic anemia, and hyperglycemia which is poorly controlled, the aforementioned lawn and garden technician advises admission to the medical service and indicates that the gynecology group will follow in consultation. Past History Past Medical History: diabetes (Bipolar disorder), other (Vaginal bleeding microcytic anemia) Past Surgical History: Other (Tubal ligation) Social history: smoking Medications and Allergies Allergies Allergy/AdvReac Type Severity Reaction Status Date / Time No Known Allergies Allergy Verified 02/17/13 23:39 Home Medications Medication Instructions Recorded Confirmed Last Taken Type Pantoprazole [Protonix] 40 mg PO QDAY 30 Days #30 tablet 09/11/18 Unknown Rx glipiZIDE 5 mg PO QID 09/11/18 09/11/18 09/10/18 History Active Meds: Active Medications Lactated Ringer's (Lactated Ringers) 1,000 mls @ 999 mls/hr IV BOLUS ONE Stop: 03/31/21 01:43 Last Admin: 03/31/21 01:28 Dose: 999 mls/hr Review of Systems Genitourinary Female: abnormal vaginal bleeding Exam - Constitutional Vitals: Temp Pulse Resp BP Pulse Ox 98.3 F 93 H 16 116/72 99 03/30/21 20:49 03/31/21 01:15 03/31/21 01:15 03/30/21 20:49 03/31/21 01:27 General appearance: Present: no acute distress, well-nourished - EENT Eyes: Present: PERRL ENT: hearing intact, clear oral mucosa - Neck Neck: Present: supple, normal ROM - Respiratory Respiratory effort: normal Respiratory: bilateral: diminished - Cardiovascular Heart Sounds: Present: S1 & S2. Absent: rub, click - Extremities Extremities: pulses symmetrical, No edema Peripheral Pulses: within normal limits - Abdominal General gastrointestinal: Present: soft, non-tender, non-distended, normal bowel sounds Female genitourinary: Present: normal - Integumentary Integumentary: Present: clear, warm, dry - Musculoskeletal Musculoskeletal: gait normal, strength equal bilaterally - Psychiatric Psychiatric: appropriate mood/affect, intact judgment & insight - Neurologic Neurologic: CNII-XII intact, moves all extremities Results - Labs CBC & Chem 7: 03/30/21 21:47 03/30/21 21:47 Labs: Laboratory Last Values WBC 3.9 K/mm3 (4.5-11.0) L 03/30/21 21:47 RBC 3.81 M/mm3 (3.65-5.03) 03/30/21 21:47 Hgb 6.6 gm/dl (10.1-14.3) L 03/30/21 21:47 Hct 23.8 % (30.3-42.9) L 03/30/21 21:47 MCV 63 fl (79-97) L 03/30/21 21:47 MCH 17 pg (28-32) L 03/30/21 21:47 MCHC 28 % (30-34) L 03/30/21 21:47 RDW 23.6 % (13.2-15.2) H 03/30/21 21:47 Plt Count 259 K/mm3 (140-440) 03/30/21 21:47 Lymph % (Auto) Human Machine Interface Engineer 03/30/21 21:47 Seg Neutrophils % Human Machine Interface Engineer 03/30/21 21:47 Sodium 132 mmol/L (137-145) L 03/30/21 21:47 Potassium 3.9 mmol/L (3.6-5.0) 03/30/21 21:47 Chloride 95.5 mmol/L (98-107) L 03/30/21 21:47 Carbon Dioxide 25 mmol/L (22-30) 03/30/21 21:47 Anion Gap 15 mmol/L 03/30/21 21:47 BUN 10 mg/dL (7-17) 03/30/21 21:47 Creatinine 0.6 mg/dL (0.6-1.2) 03/30/21 21:47 Estimated GFR > 60 ml/min 03/30/21 21:47 BUN/Creatinine Ratio 17 % 03/30/21 21:47 Glucose 496 mg/dL (65-100) H 03/30/21 21:47 Calcium 9.2 mg/dL (8.4-10.2) 03/30/21 21:47 Total Bilirubin < 0.20 mg/dL (0.1-1.2) 03/30/21 21:47 AST 12 units/L (5-40) 03/30/21 21:47 ALT 11 units/L (7-56) 03/30/21 21:47 Alkaline Phosphatase 61 units/L (35-129) 03/30/21 21:47 Total Protein 7.5 g/dL (6.3-8.2) 03/30/21 21:47 Albumin 3.9 g/dL (3.9-5) 03/30/21 21:47 Albumin/Globulin Ratio 1.1 % 03/30/21 21:47 HCG, Qual Negative (Negative) 03/30/21 21:47 Blood Type A POSITIVE 03/31/21 01:09 Crossmatch See Detail 03/31/21 01:09 Assessment and Plan VTE prophylaxis?: Mechanical Plan of care discussed with patient/family: Yes - Patient Problems (1) Episode of heavy vaginal bleeding Status: Acute Plan to address problem: Admit the patient to the medical telemetry. We are transfusing 1 unit of packed red blood cell. We will consult CONTINUITY READER for evaluation. Vaginal ultrasound. Recheck CBC BMP in the morning (2) Hyperglycemia Status: Acute Plan to address problem: Accu-Chek before meals and at bedtime with Humalog moderate dose coverage. Diabetic education (3) Microcytic anemia Status: Acute Plan to address problem: Iron tablet 325 p.o. twice daily. Recheck CBC in the morning. CONTINUITY READER evaluation (4) DVT prophylaxis Status: Acute Plan to address problem: SCD for DVT prophylaxis. Protonix 40 mg p.o. daily for GI prophylaxis. Patient is a full code
[2021-03-31] MEDS ORDERED: SODIUM CHLORIDE 0.9% 1000 ML 1,000 ML IV SCH (01:45)
--- NOTE | 2021-03-31 03:16 | Ultrasound Report ---
ULTRASOUND PELVIS INDICATION / CLINICAL INFORMATION: painless vaginal bleeding. TECHNIQUE: Transabdominal. Duplex Color Doppler used: Yes. COMPARISON: CT dated 08/21/2018. FINDINGS: UTERUS: The uterus measures 10.8 cm. The uterus demonstrates a normal sonographic appearance. The en dometrial stripe measures 0.3 cm. RIGHT ADNEXA: No significant ovarian cyst or mass. Normal color Doppler blood flow. LEFT ADNEXA: No significant ovarian cyst or mass. Normal color Doppler blood flow. URINARY BLADDER: No significant abnormality. FREE FLUID: Moderate to large volume free fluid within the cul-de-sac and bilateral adnexa. ADDITIONAL FINDINGS: None. IMPRESSION: 1. Moderate to large free fluid in the cul-de-sac and bilateral adnexa. This is greater than expected with physiologic free fluid though remains nonspecific. Consider further evaluation with CT of the a bdomen and pelvis with contrast. 2. No significant sonographic abnormality of the uterus or either ovary. No evidence of ovarian torsi on. Signer Name: Surya Marie MD Signed: 03/31/2021 3:12 AM Workstation Name: [id number]
[2021-03-31] MEDS ORDERED: SODIUM CHLORIDE 0.9% 500 ML 500 ML ONE (04:16)
[2021-03-31 04:30] LABS: Total Cells Counted 100
[2021-03-31 04:31] LABS: Anisocytosis 2+; Hypochromasia 3+; Ovalocytes Few; Tear Drop Cells Few
[2021-03-31 04:32] LABS: Platelet Estimate Consistent w Auto
[2021-03-31] MEDS: IPRATROPIUM/ALBUTEROL SULFATE 3 ML AMPUL.NEB IH SCH ×3 (05:17→14:44)
[2021-03-31] MEDS ORDERED: INSULIN LISPRO 100 UNIT/ML SUB-Q SCH (07:30)
[2021-03-31] MEDS ORDERED: DEXTROSE 50% IN WATER (25GM) 50 ML SYRINGE IV PRN (07:58)
--- NOTE | 2021-03-31 08:15 | Consultation ---
History of Present Illness Consult date: 03/31/21 History of present illness: Dysfunctional uterine bleeding with symptomatic anemia. Ultrasound shows no intracavitary lesion with endometrial stripe 0.3 cm. Recommendation is transfusion to hemoglobin of 8 or above, would start on progesterone prior to discharge and have patient follow-up with his outpatient. Progesterone options include Depo-Provera, Provera oral, and Microgestin. Thank you for this consult feel free to contact me with questions. Asher Thomas MD [phone] Past History - Obstetrical History : 3 Medications and Allergies Allergies Allergy/AdvReac Type Severity Reaction Status Date / Time No Known Allergies Allergy Verified 02/17/13 23:39 Home Medications Medication Instructions Recorded Confirmed Last Taken Type Novolin N Flexpen 20 units SC BID 03/31/21 03/31/21 03/30/21 09:00 History Active Meds: Active Medications Acetaminophen (Acetaminophen 325 Mg Tab) 650 mg PO Q4H PRN PRN Reason: Pain MILD(1-3)/Fever >100.5/JOE Albuterol (Albuterol 2.5 Mg/3 Ml Nebu) 2.5 mg IH Q3HRT PRN PRN Reason: Shortness Of Breath Albuterol/Ipratropium (Ipratropium/Albuterol Sulfate 3 Ml Ampul.Neb) 1 ampul IH Q6HRT MILANA Last Admin: 03/31/21 08:11 Dose: Not Given Dextrose (Dextrose 10% *Hypoglycemia) 0 ml IV PRN PRN PRN Reason: Hypoglycemia Diphenhydramine HCl (Diphenhydramine 50 Mg/Ml Vial) 25 mg IV Q6H PRN PRN Reason: Itching Ferrous Sulfate (Ferrous Sulfate 325 Mg Tab) 325 mg PO BID MILANA Hydromorphone HCl (Hydromorphone 1 Mg/1 Ml Inj) 0.5 mg IV Q3H PRN PRN Reason: Pain , Severe (7-10) Sodium Chloride (Nacl 0.9% 1000 Ml) 1,000 mls @ 100 mls/hr IV DIRECT MILANA Last Admin: 03/31/21 06:37 Dose: 100 mls/hr Insulin Human Isoph/Insulin Regular (Insulin Nph/Regular 70/30 Inj) 10 unit SUB-Q BIDDIAB MILANA Insulin Human Regular (Insulin Regular, Human 100 Units/1 Ml) 0 units SUB-Q ACHS MILANA; Protocol Metformin HCl (Metformin 850 Mg Tab) 850 mg PO BIDDIAB MILANA Morphine Sulfate (Morphine 2 Mg/1 Ml Inj) 2 mg IV Q4H PRN PRN Reason: Pain, Moderate (4-6) Ondansetron HCl (Ondansetron 4 Mg/2 Ml Inj) 4 mg IV Q8H PRN PRN Reason: Nausea And Vomiting Pantoprazole Sodium (Pantoprazole 40 Mg Tab) 40 mg PO QDAY MILANA Sodium Chloride (Sodium Chloride 0.9% 10 Ml Flush Syringe) 10 ml IV BID MILANA Sodium Chloride (Sodium Chloride 0.9% 10 Ml Flush Syringe) 10 ml IV PRN PRN PRN Reason: LINE FLUSH - Vital Signs Vital signs: Vital Signs Temp Pulse Resp BP Pulse Ox 98.3 F 103 H 16 116/72 100 03/30/21 20:49 03/30/21 20:49 03/30/21 20:49 03/30/21 20:49 03/30/21 20:49 Temp Pulse Resp BP Pulse Ox 97.9 F 78 18 133/88 99 03/31/21 06:05 03/31/21 06:05 03/31/21 06:05 03/31/21 06:05 03/31/21 08:11 Results Result Diagrams: 03/30/21 21:47 03/30/21 21:47 Abnormal lab results 03/30/21 03/30/21 03/31/21 Range/Units 21:47 21:47 01:09 WBC 3.9 L (4.5-11.0) K/mm3 Hgb 6.6 L (10.1-14.3) gm/dl Hct 23.8 L (30.3-42.9) % MCV 63 L (79-97) fl MCH 17 L (28-32) pg MCHC 28 L (30-34) % RDW 23.6 H (13.2-15.2) % Seg Neuts % (Manual) 27.0 L (40.0-70.0) % Lymphocytes % (Manual) 63.0 H (13.4-35.0) % Eosinophils % (Manual) 5.0 H (0.0-4.3) % Seg Neutrophils # Man 1.1 L (1.8-7.7) K/mm3 Sodium 132 L (137-145) mmol/L Chloride 95.5 L (98-107) mmol/L Glucose 496 H (65-100) mg/dL POC Glucose (70-105) mg/dL Crossmatch See Detail 03/31/21 03/31/21 Range/Units 03:55 07:10 WBC (4.5-11.0) K/mm3 Hgb (10.1-14.3) gm/dl Hct (30.3-42.9) % MCV (79-97) fl MCH (28-32) pg MCHC (30-34) % RDW (13.2-15.2) % Seg Neuts % (Manual) (40.0-70.0) % Lymphocytes % (Manual) (13.4-35.0) % Eosinophils % (Manual) (0.0-4.3) % Seg Neutrophils # Man (1.8-7.7) K/mm3 Sodium (137-145) mmol/L Chloride (98-107) mmol/L Glucose (65-100) mg/dL POC Glucose 224 H 382 H (70-105) mg/dL Crossmatch All other labs normal.
[2021-03-31] MEDS: INSULIN REGULAR, HUMAN 100 UNITS/1 ML SUB-Q SCH ×3 (08:33→16:38)
[2021-03-31] MEDS: metFORMIN 850 MG TAB PO SCH ×2 (09:06→16:39)
[2021-03-31] MEDS: INSULIN NPH/REGULAR 70/30 INJ SUB-Q SCH ×2 (09:06→16:38)
[2021-03-31] MEDS ORDERED: FERROUS SULFATE 325 MG TAB PO SCH (10:00)
[2021-03-31] MEDS ORDERED: FAMOTIDINE 20 MG/2 ML INJ IV SCH (10:00)
[2021-03-31] MEDS ORDERED: PANTOPRAZOLE 40 MG TAB PO SCH (10:00)
[2021-03-31 10:16] LABS: Hematocrit 25.7 % (30.3-42.9); Hemoglobin 7.4 gm/dl (10.1-14.3)
[2021-03-31] MEDS ORDERED: INSULIN REGULAR, HUMAN 100 UNITS/1 ML SUB-Q ONE (12:00)
--- NOTE | 2021-03-31 12:18 | Discharge Summary ---
Providers - Providers Date of Admission: 03/31/21 01:35 Date of discharge: 03/31/21 Attending physician: CARMENCITA MCGOVERN MD 03/31/21 00:43 Consult to Physician [CONS] Urgent Comment: Dr. Crocker spoke with Dr. Nichols @ 0045 Consulting Provider: RENETTA NICHOLS Physician Instructions: Reason For Exam: symptomatic anema, vaginal bleeding 03/31/21 01:35 Consult to Dietitian/Nutrition [CONS] Routine Physician Instructions: Reason For Exam: Reason for Consult: Diet education Primary care physician: NEHA CURTIS Hospitalization Reason for admission: Abnormal uterine bleeding; acute symptomatic blood loss anemia Condition: Good Pertinent studies: Reviewed. Procedures: None. Hospital course: Patient is a 35-year-old female with past medical history of uncontrolled insulin-dependent type 2 diabetes mellitus and symptomatic microcytic anemia who presented for heavy abnormal uterine bleeding for approximately 4 days. The patient was prescribed tranexamic acid by her primary care provider; however, the patient had little relief and started to develop significant pruritus consistent with a possible allergic reaction. On presentation the patient describes being weak and lightheaded. In the ED she was found to have a hemoglobin of 6.6 and a blood glucose of 496. Patient has been transfused 1 unit packed RBC with an appropriate improvement in hemoglobin to 7.4. Gynecology was consulted, and they recommended initiating Provera for abnormal uterine bleeding. Patient was initiated on insulin for glycemic control. The patient was found to have a hemoglobin of 14, and she was counseled about the importance of medication compliance and following up with a primary care provider. Patient was also counseled about incorporating red meat and/or green leafy vegetables high in iron. Patient expresses understanding. Patient is medically clear for discharge. Disposition: 01 HOME / SELF CARE / HOMELESS Final Discharge Diagnosis (Prints w/discharge instructions): Abnormal uterine bleeding, symptomatic microcytic anemia, insulin-dependent type 2 diabetes mellitus with hyperglycemia Time spent for discharge: 45 min Core Measure Documentation - Palliative Care Palliative Care/ Comfort Measures: Not Applicable - Core Measures Any of the following diagnoses?: none Exam - Constitutional Vitals: Temp Pulse Resp BP Pulse Ox 98.1 F 96 H 16 122/74 97 03/31/21 11:18 03/31/21 11:18 03/31/21 11:18 03/31/21 11:18 03/31/21 11:18 General appearance: Present: no acute distress, well-nourished - EENT Eyes: Present: PERRL, EOM intact ENT: hearing intact, clear oral mucosa, dentition normal - Neck Neck: Present: supple, normal ROM - Respiratory Respiratory effort: normal Respiratory: bilateral: CTA - Cardiovascular Rhythm: regular Heart Sounds: Present: S1 & S2 - Extremities Extremities: no ischemia, pulses intact, pulses symmetrical, No edema, normal temperature, normal color, Full ROM Peripheral Pulses: within normal limits - Abdominal General gastrointestinal: Present: soft, non-tender, non-distended, normal bowel sounds Female genitourinary: Present: deferred - Rectal Rectal Exam: deferred - Integumentary Integumentary: Present: clear, warm, dry - Musculoskeletal Musculoskeletal: strength equal bilaterally - Psychiatric Psychiatric: appropriate mood/affect, intact judgment & insight, memory intact, cooperative - Neurologic Neurologic: CNII-XII intact, moves all extremities - Allied Health Allied health notes reviewed: nursing Plan Activity: no restrictions Diet: diabetic Additional Instructions: Patient is a 35-year-old female with past medical history of uncontrolled insulin-dependent type 2 diabetes mellitus and symptomatic microcytic anemia who presented for heavy abnormal uterine bleeding for approximately 4 days. The patient was prescribed tranexamic acid by her primary care provider; however, the patient had little relief and started to develop significant pruritus consistent with a possible allergic reaction. On presentation the patient describes being weak and lightheaded. In the ED she was found to have a hemoglobin of 6.6 and a blood glucose of 496. Patient has been transfused 1 unit packed RBC with an appropriate improvement in hemoglobin to 7.4. Gynecology was consulted, and they recommended initiating Provera for abnormal uterine bleeding. Patient was initiated on insulin for glycemic control. The patient was found to have a hemoglobin of 14, and she was counseled about the importance of medication compliance and following up with a primary care provider. Patient was also counseled about incorporating red meat and/or green leafy vegetables high in iron. Patient expresses understanding. Patient is medically clear for discharge. Care Plan Goals: Patient is medically clear for discharge. Assessment: Patient is a 35-year-old female with past medical history of uncontrolled insulin-dependent type 2 diabetes mellitus and symptomatic microcytic anemia who presented for heavy abnormal uterine bleeding for approximately 4 days. The patient was prescribed tranexamic acid by her primary care provider; however, the patient had little relief and started to develop significant pruritus consistent with a possible allergic reaction. On presentation the patient describes being weak and lightheaded. In the ED she was found to have a hemoglobin of 6.6 and a blood glucose of 496. Patient has been transfused 1 unit packed RBC with an appropriate improvement in hemoglobin to 7.4. Gynecology was consulted, and they recommended initiating Provera for abnormal uterine bleeding. Patient was initiated on insulin for glycemic control. The patient was found to have a hemoglobin of 14, and she was counseled about the importance of medication compliance and following up with a primary care provider. Patient was also counseled about incorporating red meat and/or green leafy vegetables high in iron. Patient expresses understanding. Patient is medically clear for discharge. Follow up with: PRIMARY CARE, [Referring] - 7 Days Prescriptions: Ferrous Sulfate [Iron 325 MG] 325 mg PO DAILY #30 tab medroxyPROGESTERone ACETATE [Provera] 10 mg PO DAILY #7 tab
[2021-03-31 14:26] LABS: Bacteria,Urine 1+ /HPF (Negative); Bilirubin,Urine NEG (Negative); Blood,Urine LG (Negative); Color,Urine Yellow (Yellow); Protein,Urine <15 mg/dL mg/dL (Negative); Urobilinogen,Urine < 2.0 mg/dL (<2.0)
[2021-03-31 14:28] LABS: RBC,Urine > 182.0 /HPF (0.0-6.0)
[2021-03-31 17:35] VITALS: BP 113/72
== END 2021-03-31 17:45 | disposition home or self-care (01) | DRG 760 ==
LOC: ED 20:41 → 4A 03-31 01:35 → 3A 03-31 02:38
PROVIDERS: ADMIT Hospitalist; ATTEND Student in an Organized Health Care Education/Training Program
PROC: 30233N1 Transfusion of Nonautologous Red Blood Cells into Peripheral Vein, Percutaneous Approach (ICD-10-PCS; principal; 2021-03-31)
DX: N93.8 Other specified abnormal uterine and vaginal bleeding (principal); D62 Acute posthemorrhagic anemia; F31.9 Bipolar disorder, unspecified; F17.200 Nicotine dependence, unspecified, uncomplicated; Z98.51 Tubal ligation status; E11.65 Type 2 diabetes mellitus with hyperglycemia; D64.9 Anemia, unspecified
CPT/HCPCS: 36415; 76856; 80053; 81001; 82962; 83036; 83735; 84703; 85007; 85014; 85018; 85025; 86850; 86900; 86901; 86920; 87086; G0378; J3490; Q0162; Q0177; Q9967; J1200; J1815; J2930; J7030; J7040; J7120; P9016